=== PATIENT | male | born 1985 | race Caucasian/White ===

== ENCOUNTER 2019-06-14 02:57 | Inpatient (IN) ==
--- NOTE | 2019-06-14 03:11 | PROVIDER DOCUMENTATION ---
HPI-Abdominal Pain/GI Problem - General Chief Complaint: Abdominal Pain Stated Complaint: ABD PAIN Time Seen by Provider: 06/14/19 03:06 Source: patient Allergies/Adverse Reactions: Patient Allergies Allergy/AdvReac Type Severity Reaction Status Date / Time amoxicillin [Amoxicillin] Allergy Unknown Unknown Verified 06/14/19 03:07 Home Medications: Home Medication List Medication Instructions Recorded Confirmed Last Taken Type NK [No Home Medications] 06/14/19 06/14/19 Unknown History - History of Present Illness-ABD Nature of Presenting Problems: has been hurting for 3 days right upper quadrant mostly worsening this morning. Has had 4 of these over the last year.thinks food triggers . feels like he needs to havve a bm of urine but it doesnot come Abdominal Pain Onset Location: reports: RUQ Pain Radiation: reports: LUQ, back Quality of Pain: reports: aching, pressure Severity in ED: reports: moderate Onset/Duration: reports: 3 days ago Timing: reports: still present, getting worse Activities at Onset: reports: sleep Exposure to sick contacts?: No Modifying Factors: improves with: eating, movement, palpation Associated Symptoms: reports: loss of appetite, vomiting. denies: constipation, diaphoresis, diarrhea Last BM: 24 hours ago Dark Stools Present?: reports: none noticed Rectal Bleeding: reports: none # of Diarrhea Episodes: 0 Rectal Pain: reports: none # of Vomiting Episodes: 2 Bruising or Bleeding Gums?: No Similar Symptoms Previously?: Yes Recently seen or treated by another doctor?: No Review of Systems - Adult - REVIEW OF SYSTEMS - ADULT Constitutional: reports: no symptoms reported, chills, fever Eyes: reports: no symptoms reported Ears, Nose, Mouth & Throat: reports: no symptoms reported Cardiovascular: reports: no symptoms reported Respiratory: reports: no symptoms reported Gastrointestinal: reports: abdominal pain, nausea, vomiting. denies: hematem esis Genitourinary: reports: hesitency Past History - Adult - PAST MEDICAL HISTORY-ADULT Review of Records: reports: Nursing Assessment Review Major Childhood Illnesses: reports: denies history Cardiovascular: reports: denies history Respiratory: reports: denies history Gastrointestinal: reports: denies history Obstetrical/Gynecological: reports: denies history Genitourinary: reports: denies history Musculoskeletal: reports: denies history Neurological: reports: denies history Endocrine/Immune: reports: denies history Other Conditions: reports: denies history - PRIOR SURGERIES/PROCEDURES Surgical/Procedure History: reports: none - PRIOR HOSPITALIZATIONS Prior Hospitalizations: reports: none - IMMUNIZATION STATUS Childhood Immunizations: UTD Flu Vaccine: See Nurse Assessment - FAMILY HISTORY Family History: reviewed, not pertinent Physical Exam-General - PHYSICAL EXAM-ADULT Initial Vital Signs Reviewed: Yes - CONSTITUTIONAL General Appearance: alert - EYES Eyes: PERRL/EOMI, pink conjunctivae - HEAD, EARS, NOSE, MOUTH & THROAT HENMT: normocephalic/atraumatic - NECK Neck: non-tender, supple - RESPIRATORY Respiratory: chest non-tender, lungs clear, normal breath sounds - CARDIOVASCULAR Cardiovascular: regular rate, rhythm, no edema - GASTROINTESTINAL (ABDOMEN) Abdominal Exam: tenderness, other (RUQ pain) - LYMPHATIC Lymphatic: no adenopathy - MUSCULOSKELETAL Back Exam: no CVA tenderness, no vertebral tenderness Extremity: non-tender, normal gait - SKIN Integumentary: normal turgor, warm/dry - NEUROLOGIC Neurologic: grossly normal, no motor/sensory deficits - PSYCHIATRIC Psych/Mental Status: normal mood/affect Progress - PLAN OF CARE/RESULTS Progress/Plan/Lab Results: Vital Signs - 8 hr 06/14/19 03:02 Temperature 97.8 F Pulse Rate 94 H Respiratory Rate 20 Blood Pressure 138/86 O2 Sat by Pulse Oximetry 96 Orders Category Date Time Status NPO Diet 06/14/19 03:04 Active CBC WITH DIFF [HEME] Stat Lab 06/14/19 03:04 Uncollected COMPREHENSIVE METABOLIC PANEL [CHEM] Stat Lab 06/14/19 03:04 Uncollected LIPASE [CHEM] Stat Lab 06/14/19 03:04 Uncollected UA [URINALYSIS W/POSS RFLX CULT] [URINALYSIS] Stat Lab 06/14/19 03:04 Uncollected Abd Pain/OB <20 weeks Stat Oth 06/14/19 03:04 Ordered Result Diagrams: 06/15/19 06:20 06/15/19 06:20 - CT/MRI 1 CT Study: Abdomen, Pelvis Impression: Abnormal (large gb large fatty liver splenomgaly) - CONSULTS/PCP/HOSPITALIST Notification #1 *Consult/PCP/Hospitalist*: Dr Blue Time Discussed: 09:13 Consult Disposition: Admit (admit to hospitalist, put pt on zosyn) Departure - Departure Date of Disposition Decision: 06/14/19 Time of Disposition Decision: 13:50 DIAGNOSIS: Upper abdominal pain Gall stone Qualifiers: Cholecystitis presence: without cholecystitis Biliary obstruction: with biliary obstruction Qualified Code(s): K80.21 - Calculus of gallbladder without cholecystitis with obstruction Disposition: ADMITTED INPATIENT 09 Certified Medical Emergency: Emergent Condition: Stable - Critical Care Note This patient required my direct & personal management of CC.: No Attestation - Physician/ SONJA Attestation Patient care was provided by Advanced Practice Provider:: No The physician spent face to face time with patient:: Yes Advanced Practice Provider documentation review:: Supervising physician onsite and consulted in the evaluation and care of this patient. The physician did have a face to face encounter with the patient.
[2019-06-14 03:28] LABS: URINE SOURCE CLEAN CATCH
[2019-06-14 03:32] LABS: BASO# 0.02 X1000 (0.0-0.2); BASO% 0.2 % (0.0-0.8); EOS% 1.1 % (0.0-10.0); HEMATOCRIT 40.4 % (42.0-52.0); IMM GRAN# 0.03 X1000 (0.0-0.04); IMM GRAN% 0.3 % (0.0-0.5); LYMPH# 0.92 X1000 (1.2-3.4); LYMPH% 9.7 % (20.5-51.1); MCH 29.2 PG (27-31); MCHC 34.7 g/dL (33-37); MCV 84.3 FL (81-99); MONO% 8.5 % (1.7-9.3); NEUT# 7.59 X1000 (1.4-6.5); NEUT% 80.2 % (42.2-75.2); PLT 354 X1000 (130-400); RBC 4.79 XMIL (4.7-6.1); RDW 14.1 % (11.5-14.5); WBC 9.46 X1000 (4.8-10.8)
[2019-06-14 03:38] LABS: BILIRUBIN URINE SMALL (NEGATIVE); BLOOD URINE NEGATIVE (NEGATIVE); COLOR YELLOW; GLUCOSE URINE NEGATIVE (NEGATIVE); KETONE URINE NEGATIVE (NEGATIVE); LEUKOCYTES URINE NEGATIVE (NEGATIVE); NITRITE URINE NEGATIVE (NEGATIVE); PH URINE 6.5; PROTEIN URINE 30 mg/dL (NEGATIVE); SP GRAVITY URINE 1.034; TURBIDITY URINE CLEAR (CLEAR); UROBILINOGEN URINE 12 mg/dL (NORMAL)
[2019-06-14 03:44] LABS: UR EPITHELIAL CELLS <10 /HPF (<10); URINE RBC <10 /HPF (<10); URINE WBC <10 /HPF (<10)
[2019-06-14] MEDS ORDERED: TORADOL IV ONE (03:47)
[2019-06-14 03:49] LABS: AGAP 15; ALBUMIN 4.5 g/dL (3.5-5.0); ALKALINE PHOSPHATASE 126 U/L (32-122); BUN 13 mg/dL (8-22); CALCIUM 9.4 mg/dL (8.8-10.2); CHLORIDE 101 mmol/L (98-107); COSMO 276; CREATININE 0.8 mg/dL (0.7-1.2); ESTIMATED GFR > 60; GLUCOSE 133 mg/dL (70-104); GOT 613 U/L (10-34); GPT 652 U/L (10-44); LIPASE 19 U/L (13-60); POTASSIUM 4.4 mmol/L (3.5-5.1); SODIUM 137 mmol/L (136-145); TCO2 21 mmol/L (25-35)
[2019-06-14 03:57] LABS: URINE CASTS NONE SEEN; URINE YEAST NONE SEEN
[2019-06-14 03:58] LABS: URINE BACTERIA NEGATIVE /HPF; URINE CRYSTALS NONE SEEN; URINE SMALL ROUND CELLS NONE SEEN
--- NOTE | 2019-06-14 07:10 | Diag Imaging Result Doc PS360 ---
CT ABD/PELVIS W/IV CONT ONLY - 06/14/2019 INDICATION: abd pain COMPARISON: 01/03/2012 FINDINGS: The lung bases are clear and the heart size is normal. There is significant hepatic steatosis. There is mild splenomegaly. The spleen measures about 14 cm. There is some questionable wall thickening of the gallbladder. The pancreas, adrenals, and kidneys are normal. No bowel obstruction or inflammation. Normal appendix. No free air or free fluid. Urinary bladder, prostate, and rectum are normal. Bones are intact. IMPRESSION: 1. Questionable wall thickening of the gallbladder. Recommend a gallbladder ultrasound. 2. Fatty liver. Splenomegaly. This exam was performed using automated exposure control, adjustment of mA or kV according to patient size, and/or use of iterative reconstruction technique Electronically signed by Delmar Benitez 06/14/2019 7:08 AM
--- NOTE | 2019-06-14 08:11 | Diag Imaging Result Doc PS360 ---
EXAM: US GB < RUQ (LIMITED) - 06/14/2019 HISTORY: pain jaundice TECHNIQUE: Ultrasound gallbladder COMPARISON: 06/14/2019 CT abdomen/pelvis FINDINGS: There are multiple gallstones with shadowing and movement in the gallbladder. The gallbladder ashley appear thickened up to 9 mm. There is apparent gallbladder wall edema. The technologist reports positive sonographic Faust's sign. The common bile duct is normal caliber at 4 mm. The liver appears diffusely echodense suggesting fatty infiltration. There is no focal liver lesion identified. Doppler image shows hepatopedal flow in the portal vein. There are no abnormalities of the right kidney or visualized portions of the pancreas identified. IMPRESSION: Multiple gallstones in gallbladder. Thickened gallbladder ashley, which appear to be edematous. Cholecystitis cannot be excluded. The common bile duct is normal caliber at 4 mm. Fatty infiltration of liver. Electronically signed by Jorge L Camargo 06/14/2019 8:09 AM
[2019-06-14] MEDS ORDERED: ZOFRAN IV ONE (08:52)
[2019-06-14] MEDS ORDERED: MORPHINE IV ONE (08:52)
[2019-06-14] MEDS ORDERED: ZOSYN 4.5 GM in NS 100 ML IV ONE (09:12)
[2019-06-14] MEDS ORDERED: NS 1,000 ML IV ONE ×2 (11:10→15:21)
[2019-06-14] MEDS ORDERED: ZOFRAN IV PRN ×2 (11:57→15:14)
[2019-06-14] MEDS: LEVAQUIN 500 MG/D5W 500 MG/100 ML IVPB IV SCH (12:40)
[2019-06-14] MEDS ORDERED: DEMEROL IV PRN (15:13)
[2019-06-14 16:24] LABS: INR 1.14; PROTIME 14.7 Seconds (11.0-16.0)
--- NOTE | 2019-06-14 16:54 | PROGRESS NOTE ---
DATE: 06/14/2019 The patient had presented to [facility] and noted to have acute cholecystitis after CT of abdomen and pelvis. Then abdominal ultrasound showed cholelithiasis and gallbladder wall thickening. He has mild jaundice and his labs showed elevation of his LFTs, consistent with cholecystitis, despite normal white count. He has received IV boluses at the emergency room at [facility] and has been started on antibiotics, first in the form of Zosyn and now on Levaquin. He has been given pain medication, initially with morphine and now has Demerol ordered for that. Dr. Barry Blue has been consulted and is aware of his transfer to [facility]. I will be assuming his primary care here in the hospital at [facility] as I do not work at [facility] and he has been managed by the hospitalist to this point. Dr. Blue will be taking over from a surgical standpoint. I have examined the patient, reviewed the data, and discussed treatment with the patient in detail. cc: Marcus Cooper MD
[2019-06-14] MEDS: DILAUDID IV PRN ×2 (18:20→21:21)
--- NOTE | 2019-06-14 19:45 | GENERAL SURGERY CONSULTATION ---
DATE: 06/14/2019 REASON FOR CONSULTATION: Gallstones with possible biliary obstruction. CHIEF COMPLAINT: Abdominal pain. HISTORY OF PRESENT ILLNESS: This is a 33-year-old gentleman who has had intermittent abdominal pain over the last year. He says over the last 3 days and recently his symptoms have progressed becoming more constant over the last 3 days. He denies any jaundice, no fevers. He has had some associated nausea and vomiting. Bowel function has been otherwise normal. MEDICAL HISTORY: Negative. SURGICAL HISTORY: Negative. SOCIAL HISTORY: No tobacco, alcohol, or drugs. He is a intermodal truck driver. FAMILY HISTORY: Significant for esophageal cancer. REVIEW OF SYSTEMS: Ten-point review was performed and negative other than what is mentioned in HPI. PHYSICAL EXAMINATION: General: He is walking around the room, appears uncomfortable. He is tearful. He is alert, in mild distress. He is having pain. Vital signs: No fevers. Pulse 92, blood pressure 124/68, oxygen saturation 95%. He is 230 pounds, 5 foot 9 inches. HEENT: No scleral icterus. No cervical mass. Cardiovascular: Normal rate. Pulmonary: No increased work of breathing. Abdomen: Soft. He is tender subjectively in the upper quadrant. There has been no rebound or guarding. Integument: Warm and dry. Psychiatric: Appropriate affect. Neurologic: No gross deficits. Lymphatic: No cervical adenopathy. LABORATORY DATA: White count 9, hematocrit 40, platelets 354,000. Creatinine 0.8. Bilirubin is 4. AST 613, ALT 652, alkaline phosphatase 126, lipase 19. Urinalysis negative for nitrites and leukocytes. IMAGING: I reviewed his CT scan. His abdominal ultrasound shows gallstones but a normal caliber bile duct. There is some thickening of the gallbladder wall. ASSESSMENT AND PLAN: This is a 33-year-old gentleman admitted with gallstones and elevated liver function tests, possible early cholecystitis. Given this, I have recommended cholecystectomy with cholangiogram tomorrow. He is on antibiotics currently, and we will continue bowel rest, IV hydration and IV pain medicine. We discussed risks of bleeding, infection, damage to surrounding structures, bile leak, conversion to open, possibility of an ERCP. He understands all this and consents. We will go to the operating room tomorrow for cholecystectomy with cholangiogram. cc: Laura Blue MD
[2019-06-14] MEDS: TYLENOL PO PRN (21:18)
[2019-06-15] MEDS: DILAUDID IV PRN ×6 (00:22→20:43)
--- NOTE | 2019-06-15 01:41 | HISTORY AND PHYSICAL ---
CHIEF COMPLAINT: Abdominal pain. HISTORY OF PRESENT ILLNESS: The patient is very pleasant male who presented to the hospital noting that he has been having abdominal pain off and on for approximately a year. States that sometimes food makes it worse. However, over the past 3 days he has had increasing right upper quadrant/epigastric pain, increasing nausea. He has had decreased oral intake. Finally, symptoms became severe enough that he came to the hospital. ALLERGIES: Amoxicillin. MEDICATIONS: He is on no current prescription medications. PAST MEDICAL HISTORY: No chronic active medical problems. REVIEW OF SYSTEMS: Denies fevers, chills, cough, congestion. Denies dysuria, urinary frequency, urgency, hesitancy, polyuria or polydipsia. Denies skin rashes, weight loss, weight gain. Denies constipation, melena, hematochezia. Does have pain right upper quadrant/epigastric area with vomiting off and on for the past 3 days. Decreased appetite. Denies headaches or blurred vision. Denies focalized weakness. Notes that his symptoms continue to worsen. FAMILY HISTORY: Noncontributory. SOCIAL HISTORY: Does not smoke, drink, use illicit substances. PHYSICAL EXAMINATION: VITAL SIGNS: Reviewed. Temperature 97.8 degrees, pulse 94, respiratory 20, BP 138/86, saturating 96% on room air. GENERAL: Patient is awake, pleasant, in no distress. HEENT: Normocephalic. NECK: Supple. CARDIOVASCULAR: Regular rate. CHEST: Clear and nonlabored. ABDOMEN: Soft, tender in the right upper quadrant and epigastric region. Positive bowel sounds. EXTREMITIES: Moves all extremities. NEUROLOGIC: No focal changes. SKIN: Warm, dry. No rashes. ASSESSMENT: 1. Gallstones. 2. Probable cholecystitis. 3. Right upper quadrant pain. 4. Mild hyperglycemia. 5. Fatty liver. 6. Mild splenomegaly. PLAN: We are going to admit patient to the hospital, place on antibiotics, IV fluids. We will consult Surgery. Transfer to [facility] and we will treat symptomatically. cc: Arash Charles MD
[2019-06-15] MEDS: TYLENOL PO PRN ×2 (03:27→22:16)
[2019-06-15 06:52] LABS: HEMATOCRIT 40.6 % (42.0-52.0); MCH 29.5 PG (27-31); MCHC 34.5 g/dL (33-37); MCV 85.7 FL (81-99); MPV 9.2 FL (7.4-10.4); RBC 4.74 XMIL (4.7-6.1); RDW 14.4 % (11.5-14.5); WBC 8.46 X1000 (4.8-10.8)
[2019-06-15 07:16] LABS: AGAP 11; ALB/GLOB RATIO 1.1; ALKALINE PHOSPHATASE 201 U/L (32-122); BUN 9 mg/dL (8-22); CALCIUM 9.5 mg/dL (8.8-10.2); CHLORIDE 99 mmol/L (98-107); COSMO 268; CREATININE 0.9 mg/dL (0.7-1.2); ESTIMATED GFR > 60; GLUCOSE 93 mg/dL (70-104); GOT 474 U/L (10-34); MAGNESIUM 2.1 mg/dL (1.5-2.7); POTASSIUM 4.1 mmol/L (3.5-5.1); SODIUM 135 mmol/L (136-145); TCO2 25 mmol/L (25-35); TOTAL PROTEIN 7.6 g/dL (6.3-8.3)
[2019-06-15 07:32] LABS: GPT 1032 U/L (10-44)
[2019-06-15] MEDS ORDERED: VERSED ONE ×2 (09:45→10:25)
[2019-06-15] MEDS ORDERED: FENTANYL ONE ×2 (09:45→11:23)
[2019-06-15] MEDS ORDERED: DIPRIVAN 1% ONE (09:46)
[2019-06-15] MEDS ORDERED: MARCAINE 0.25% PF/EPI 1:200,000 ONE (10:15)
[2019-06-15] MEDS ORDERED: LR 1,000 ML ONE (10:15)
[2019-06-15] MEDS ORDERED: SODIUM CHLORIDE 0.9% ONE (10:15)
[2019-06-15] MEDS ORDERED: NEOSTIGMINE ONE (11:00)
[2019-06-15] MEDS ORDERED: ROBINUL ONE (11:00)
[2019-06-15] MEDS ORDERED: XYLOCAINE-MPF 2% ONE (11:01)
[2019-06-15] MEDS ORDERED: QUELICIN (DOSE) ONE (11:01)
[2019-06-15] MEDS ORDERED: DECADRON ONE (11:01)
[2019-06-15] MEDS ORDERED: ZEMURON ONE ×3 (11:01→12:17)
[2019-06-15] MEDS ORDERED: ZOFRAN ONE (11:01)
[2019-06-15] MEDS ORDERED: OFIRMEV 1000 MG/ISOTONIC SOLN 1,000 MG/100 ML BOTTLE ONE (11:01)
[2019-06-15] MEDS: LEVAQUIN 500 MG/D5W 500 MG/100 ML IVPB IV SCH (11:40)
--- NOTE | 2019-06-15 12:16 | Diag Imaging Result Doc PS360 ---
EXAM: OPERATIVE CHOLANGIOGRAM HISTORY: GALLBLADDER DX TECHNIQUE: Seven views COMPARISON: None. FINDINGS: Contrast fills the common bile duct. Jolon-shaped filling defect in the distal common bile duct. IMPRESSION: Distal common bile duct stone. Electronically signed by Don Diggs 06/15/2019 12:14 PM
[2019-06-15] MEDS: DILAUDID ONE (13:34)
--- NOTE | 2019-06-15 14:32 | OPERATIVE NOTE ---
PROCEDURE DATE: 06/15/2019 PREOPERATIVE DIAGNOSIS: Choledocholithiasis. POSTOPERATIVE DIAGNOSES: 1. Choledocholithiasis. 1. Acute on chronic cholecystitis. PROCEDURE PERFORMED: Laparoscopic cholecystectomy with cholangiogram. ESTIMATED BLOOD LOSS: 50 mL. SPECIMENS: Gallbladder. ANESTHESIA: General. OPERATIVE FINDINGS: 1. There was a densely inflamed thickened wall gallbladder with a significant Calot node. There were numerous stones impacted within the cystic duct with a significantly dilated gallbladder infundibulum cystic duct. 2. Interpretation of cholangiogram showed rapid flow of contrast through a moderate length cystic duct into a dilated common bile duct with distal filling defect. Intrahepatic radicals bilaterally were normal other than with dilation consistent with retained distal common bile duct operative stone. OPERATIVE NOTE: Risks, benefits, and alternatives were discussed with the patient and he consented to the procedure. He was seen preoperatively. Surgical site was confirmed. He was taken to the operating room and placed in the supine position. General anesthesia induced without complication. All bony prominences were padded. His abdomen was prepped with chlorhexidine solution after hair was removed with clippers and draped in usual fashion. An orogastric tube was placed. He was on scheduled antibiotics and these were confirmed. After a time-out a supraumbilical midline incision was made and carried down along the fascia. The fascia was incised and the abdomen was entered in an open controlled fashion and a 12 mm Dong trocar was placed. We then placed 3 additional trocars along the costal margin after insufflating the abdomen and decompressed the gallbladder with the suction decompression catheter retracted cephalad. We then had to place a right lower quadrant 10 mm trocar for a fan retractor. We did this under direct observation. Starting laterally and progressing medially, we stripped down the thickened peritoneum and inflamed node over the infundibulocystic junction. We did this meticulously, it was very densely inflamed. There were impacted stones within the cystic duct that we made a ductotomy, and milked back. We were able to safely establish a critical view, encircling the cystic duct, including the lower third of the gallbladder, made a ductotomy. We were able to cannulate the cystic duct and confirm our anatomy with the cholangiogram. The findings were consistent with a choledocholithiasis. At this point, we re-established our exposure. We had plenty of length on the cystic duct. Given the dilated nature our clips would not fit, as such a 30 mm endo-JAIME gold load stapler was used to staple across the duct. The gallbladder was removed and there was spillage of a couple stones but we were able to collect these and keep the majority of the stones within the gallbladder. There were innumerable stones in the gallbladder. The bile was white, consistent with gallbladder hydrops. It was placed in an EndoCatch bag, copiously irrigated. There was no bile leakage. There was no bleeding. There was a posterior cystic artery that we coursed directly in the gallbladder that was clipped during removal of the gallbladder. It was placed in an EndoCatch bag. A Alexandru drain was placed. We had to up size our epigastric trocar to admit the stapler. We closed both the right lower quadrant and the epigastric with a Refugio Christiano 0 Vicryl. The midline fascia was closed with interrupted 0 Vicryl and skin was closed with surgical clips. He was awoken and transferred to recovery. I attempted to reach the family. Counts were correct. I have also consulted Gastroenterology for ERCP. cc: MD Marcus Godwin MD
--- NOTE | 2019-06-15 16:04 | PROGRESS NOTE ---
DATE: 06/15/2019 SUBJECTIVE: The patient just back from surgery and the recovery room. He has undergone laparoscopic cholecystectomy with drain left in place. Unfortunately, he does have a common bile duct stone and Dr. Lilly has been consulted per Dr. Blue. He is currently comfortable. OBJECTIVE: Afebrile, pulse 81, respirations 16, blood pressure 134/79, O2 saturation on oxygen 91%, having run 99 to 96% throughout the afternoon.CV: Regular rate and rhythm without murmur. Lungs: Clear. Abdomen: Drain in place. Active bowel sounds. Extremities: No calf tenderness, cords or edema. Skin is sweaty. Neuro: He follows all commands. He is somewhat sedated currently. He has moderate jaundice. LAB DATA: Today shows a BUN of 9, creatinine 0.9, potassium 4.1, calcium 9.5, magnesium 2.1. Bilirubin cody from 4 to 10, AST 474, ALT 1032, alkaline phosphatase 201, total protein 7.6, albumin 4.0, lipase yesterday 19. TSH 1.57. White count 8.4, hemoglobin 14, platelets 357,000. INR 1.14. ASSESSMENT: Acute cholecystitis with choledocholithiasis, now status post laparoscopic cholecystectomy with need for endoscopic retrograde cholangiopancreatography to be done by Dr. Lilly. PLAN: Continue IV Levaquin as he is allergic to penicillin. We will add Flagyl, and Dr. Lilly is going to see the patient regarding ERCP. We will give him some low-grade IV fluids in light of his jaundice. Repeat labs in the morning. Dr. Sumner will be seeing him in my absence tomorrow. cc: Marcus Cooper MD
[2019-06-15] MEDS ORDERED: NS + KCL 20 MEQ 1,000 ML IV SCH (16:38)
[2019-06-15] MEDS: D5 1/2 NS 1,000 ML IV SCH (16:40)
[2019-06-15] MEDS: FLAGYL 500 MG/NS 500 MG/100 ML IVPB IV SCH (20:44)
[2019-06-15] MEDS ORDERED: PERIDEX MT SCH (21:00)
[2019-06-16] MEDS: DILAUDID ONE (00:29)
[2019-06-16] MEDS: D5 1/2 NS 1,000 ML IV SCH (00:30)
--- NOTE | 2019-06-16 00:35 | GASTROENTEROLOGY CONSULTATION ---
DATE: 06/15/2019 REASON FOR CONSULTATION: Choledocholithiasis, abnormal LFTs. HISTORY OF PRESENT ILLNESS: Mr. Idris Sims is a 33-year-old gentleman with obesity who presented with 2 days of severe epigastric abdominal pain. The patient says that he developed pain suddenly while at work at around 8 p.m. His pain became progressively worse, prompting him to come to the emergency room at about 2 a.m. in the morning. He reports some nausea, decreased p.o. intake, dark urine and jaundice. No fevers, vomiting, change in bowel habits, abnormal weight loss, rectal bleeding, melena or new medication. Denies any family or personal history of liver disease. He does not drink alcohol regularly. No drug use or Tylenol use. He had a CT on admission that showed some fatty liver and questionable wall thickening of the gallbladder as well as some mild splenomegaly. Subsequent abdominal ultrasound showed multiple gallstones in the gallbladder, thickened gallbladder ashley that were edematous, concerning for acute cholecystitis. The common bile duct was measuring 4 mm at the time. He underwent laparoscopic cholecystectomy today with intraoperative cholangiogram showing distal common bile duct stones. He currently denies any pain or any other symptoms. He is hemodynamically stable. REVIEW OF SYSTEMS: As per HPI, otherwise 12-point review of systems is negative. PAST MEDICAL HISTORY: None. PAST SURGICAL HISTORY: None. MEDICATIONS: None. ALLERGIES: Amoxicillin FAMILY HISTORY: No family history of liver disease or GI malignancy. SOCIAL HISTORY: Nonsmoker. He drinks alcohol rarely. No drug use. PHYSICAL EXAMINATION: Vital signs: Temperature is 99.1 degrees, heart rate 80, respiratory rate 16, blood pressure 123/72, O2 saturation 95% on room air. Generally the patient is awake, alert, oriented, in no acute distress. HEENT: Some scleral icterus is present. Moist mucous membranes. Extraocular motor intact. No JVD or lymphadenopathy. Cardiac: Regular rate and rhythm. No murmurs, rubs or gallops. Lungs are clear to auscultation bilaterally. Abdomen is obese, soft. Trocar incisions are dressed, with dressing clean, dry and intact. Bowel sounds are hypoactive. No rebound or guarding. Extremities: No clubbing, cyanosis or edema. Neurologic: Nonfocal. LABORATORY DATA: White count is 8.46, hemoglobin of 14.0, platelets are 367,000. Sodium 135, potassium 4.1, chloride 99, bicarbonate 35, BUN of 9, creatinine 0.9, glucose of 93, total bilirubin of 10 from 4 yesterday, AST of 474 from 613, ALT of 1032 from 652, alkaline phosphatase of 201 from 126, total protein 4.6. Lipase is 19. TSH of 1.57. UA shows urobilinogen and bilirubin. Imaging as mentioned in the HPI. Blood cultures x2 pending. ASSESSMENT AND PLAN: Mr. Idris Sims is a 33-year-old gentleman with obesity, who presents with obstructive jaundice and abdominal pain in the setting of acute cholecystitis with choledocholithiasis. He is postoperative day zero from laparoscopic cholecystectomy. He has grossly cholestatic liver function tests. He is hemodynamically stable. He is on Levaquin, and is being started on Flagyl as per primary team. I have spoken with Dr. Weldon. The plan for him will be to have endoscopic retrograde cholangiopancreatography tomorrow. We will keep him NPO after midnight. Continue to trend his liver function tests daily. Intravenous fluids, antibiotics, pain control. Further recommendations post ERCP tomorrow. # Acute cholecystitis # Choledocholithiasis # Abnormal LFTs # Nausea Thank you for this consult. We will follow with you. Please call with any questions or concerns. cc: Marcus Cooper MD MTDD
[2019-06-16] MEDS: DILAUDID IV PRN ×6 (03:09→21:37)
[2019-06-16] MEDS: FLAGYL 500 MG/NS 500 MG/100 ML IVPB IV SCH ×3 (04:51→20:12)
[2019-06-16 06:48] LABS: BASO# 0.02 X1000 (0.0-0.2); BASO% 0.2 % (0.0-0.8); EOS# 0.08 X1000 (0.0-0.7); EOS% 0.9 % (0.0-10.0); HEMATOCRIT 36.7 % (42.0-52.0); HEMOGLOBIN 12.4 g/dL (14.0-18.0); IMM GRAN# 0.03 X1000 (0.0-0.04); IMM GRAN% 0.3 % (0.0-0.5); LYMPH% 13.2 % (20.5-51.1); MCHC 33.8 g/dL (33-37); MCV 85.7 FL (81-99); MONO# 0.67 X1000 (0.11-0.59); MONO% 7.3 % (1.7-9.3); MPV 9.2 FL (7.4-10.4); NEUT# 7.12 X1000 (1.4-6.5); NEUT% 78.1 % (42.2-75.2); PLT 355 X1000 (130-400); RBC 4.28 XMIL (4.7-6.1); RDW 14.1 % (11.5-14.5); WBC 9.12 X1000 (4.8-10.8)
[2019-06-16 07:30] LABS: POTASSIUM 3.9 mmol/L (3.5-5.1); SODIUM 136 mmol/L (136-145)
[2019-06-16 07:31] LABS: AGAP 13; ALBUMIN 3.5 g/dL (3.5-5.0); ALKALINE PHOSPHATASE 210 U/L (32-122); AMYLASE 47 U/L (20-200); BUN 10 mg/dL (8-22); CALCIUM 8.7 mg/dL (8.8-10.2); CHLORIDE 99 mmol/L (98-107); COSMO 271; CREATININE 0.8 mg/dL (0.7-1.2); ESTIMATED GFR > 60; GLUCOSE 99 mg/dL (70-104); GOT 338 U/L (10-34); GPT 815 U/L (10-44); LIPASE 23 U/L (13-60); TCO2 24 mmol/L (25-35); TOTAL BILIRUBIN 7.91 mg/dL (0.20-1.00)
[2019-06-16] MEDS ORDERED: QUELICIN (DOSE) ONE (07:59)
[2019-06-16] MEDS ORDERED: DIPRIVAN 1% ONE (07:59)
[2019-06-16] MEDS ORDERED: VERSED ONE (07:59)
[2019-06-16] MEDS ORDERED: XYLOCAINE-MPF 2% ONE (07:59)
[2019-06-16] MEDS ORDERED: PERIDEX MT SCH (09:00)
[2019-06-16] MEDS: TYLENOL PO PRN (09:05)
[2019-06-16] MEDS ORDERED: DILAUDID ONE (10:47)
[2019-06-16] MEDS ORDERED: ZOFRAN ONE (11:28)
[2019-06-16] MEDS ORDERED: DECADRON ONE (11:28)
--- NOTE | 2019-06-16 11:38 | GENERAL SURGERY PROGRESS NOTE ---
DATE: 06/16/2019 SUBJECTIVE: The patient complains of abdominal pain, partially relieved with the 0.5 mg of Dilaudid. Overall though his pain is improved compared to preop. No nausea or vomiting. He is awaiting ERCP. OBJECTIVE: Vital Signs: He is afebrile. Vital signs are stable. General: He is awake, alert, oriented x3, in no acute distress. Gastrointestinal: Soft, minimally tender. Incision is clean, dry, and intact. LABORATORY: Total bilirubin 7.9, AST 338, ALT 815, alkaline phosphatase 210. ASSESSMENT AND PLAN: 33-year-old male status post laparoscopic cholecystectomy with residual choledocholithiasis. He is getting endoscopic retrograde cholangiopancreatography today. We will advance his diet afterwards. I will increase his Dilaudid to 1 mg and we are planning [place] for pain as well. He can advance his diet if the endoscopic retrograde cholangiopancreatography goes well. cc: MD Marcus Joy MD
[2019-06-16] MEDS ORDERED: LR 500 ML ONE (11:55)
--- NOTE | 2019-06-16 12:09 | OPERATIVE NOTE ---
PROCEDURE DATE: 06/16/2019 PROCEDURES: 1. Endoscopic retrograde cholangiography. 2. Sphincterotomy. 3. Stone removal. 4. Stent placement. PREOPERATIVE DIAGNOSIS: Choledocholithiasis. POSTOPERATIVE DIAGNOSIS: Debris plus small blood clot in the common bile duct, removed and stented. PROCEDURE: After informed consent and adequate intravenous sedation, the scope introduced in the esophagus, stomach and duodenum. Ampulla appears normal. Cholangiogram did not reveal any large filling defects. A standard sphincterotomy was done. Basket sweep did reveal debris and a small blood clot. This was lavaged. At this point, a short 5 cm, 10-Frisian stent was deployed after standard sphincterotomy. The patient tolerated the procedure well without any immediate complications. Advance the diet. I will see him in follow up in 2 to 3 weeks, and remove the stent. cc: MD Marcus Bazzi MD R. Tyler Harney, MD
--- NOTE | 2019-06-16 13:18 | PROGRESS NOTE ---
DATE: 06/16/2019 SUBJECTIVE: A 33-year-old white male admitted to the hospital with cholecystitis with choledocholithiasis. The patient had a laparoscopic cholecystectomy done 06/15/2019. Dr. Blue and Dr. Weldon did a stent this afternoon. The patient is eating a liquid diet. He is feeling better. PHYSICAL EXAMINATION: Vital signs: Temperature is 97 degrees, pulse is 86, blood pressure is stable. HEENT: He is still icteric. Chest: Clear. Heart: Sounds are regular. Abdomen: Belly is soft, nontender. Neurologic: No neurological deficits. INVESTIGATIONS: CBC: White cell count 9.1, hematocrit 36, platelets 355,000. Sodium 136, potassium 3.9, BUN 10, creatinine 0.8. Bilirubin is coming down to 7.9. LFTs were coming down. ASSESSMENT AND PLAN: Status post cholecystectomy. A small blood clot was removed, stented. He is on clear liquid diet. Currently he is on IV Levaquin, IV Flagyl and nausea medicine, and we will follow up on the labs in the morning. Continue present treatment. We will follow up. cc: MD Marcus Ferreira MD
[2019-06-16] MEDS: LEVAQUIN 500 MG/D5W 500 MG/100 ML IVPB IV SCH (13:28)
[2019-06-16] MEDS: NORCO-10 PO PRN ×2 (13:32→20:11)
[2019-06-16] MEDS: NS 1,000 ML IV SCH ×2 (13:32→20:12)
[2019-06-17] MEDS: NS 1,000 ML IV SCH ×4 (00:29→14:06)
[2019-06-17] MEDS: DILAUDID IV PRN ×7 (00:47→23:56)
[2019-06-17] MEDS: NORCO-10 PO PRN ×3 (02:28→18:51)
[2019-06-17] MEDS: FLAGYL 500 MG/NS 500 MG/100 ML IVPB IV SCH ×3 (04:04→20:36)
[2019-06-17 07:00] LABS: BASO# 0.02 X1000 (0.0-0.2); BASO% 0.2 % (0.0-0.8); EOS# 0.14 X1000 (0.0-0.7); EOS% 1.7 % (0.0-10.0); HEMATOCRIT 36.1 % (42.0-52.0); IMM GRAN# 0.04 X1000 (0.0-0.04); IMM GRAN% 0.5 % (0.0-0.5); LYMPH% 18.7 % (20.5-51.1); MCH 29.1 PG (27-31); MCHC 33.2 g/dL (33-37); MCV 87.6 FL (81-99); MONO# 0.66 X1000 (0.11-0.59); MONO% 8.2 % (1.7-9.3); MPV 9.5 FL (7.4-10.4); NEUT# 5.66 X1000 (1.4-6.5); NEUT% 70.7 % (42.2-75.2); PLT 358 X1000 (130-400); RBC 4.12 XMIL (4.7-6.1); RDW 14.4 % (11.5-14.5); WBC 8.02 X1000 (4.8-10.8)
[2019-06-17 07:22] LABS: AGAP 11; ALB/GLOB RATIO 1.2; ALBUMIN 3.4 g/dL (3.5-5.0); ALKALINE PHOSPHATASE 220 U/L (32-122); BUN 9 mg/dL (8-22); CALCIUM 8.6 mg/dL (8.8-10.2); CHLORIDE 99 mmol/L (98-107); COSMO 267; CREATININE 0.8 mg/dL (0.7-1.2); ESTIMATED GFR > 60; GLUCOSE 94 mg/dL (70-104); GOT 266 U/L (10-34); GPT 677 U/L (10-44); POTASSIUM 3.4 mmol/L (3.5-5.1); SODIUM 134 mmol/L (136-145); TCO2 24 mmol/L (25-35); TOTAL BILIRUBIN 4.79 mg/dL (0.20-1.00); TOTAL PROTEIN 6.3 g/dL (6.3-8.3)
--- NOTE | 2019-06-17 08:48 | GENERAL SURGERY PROGRESS NOTE ---
DATE: 06/17/2019 SUBJECTIVE: The patient feels much better. He has mild soreness in the right upper quadrant. No nausea or vomiting. No severe abdominal pain. He is tolerating his liquid diet and he is hungry. The notes of the ERCP were reviewed. The findings were significant for debris and blood clot in the bile duct, which was cleared out. OBJECTIVE: He is afebrile. Vital signs are stable. General: He is awake, alert, and oriented x3. No acute distress. GI: Soft. Mild tenderness in the right upper quadrant. No rebound or guarding. KARLA drain serosanguineous. Laboratory: AST 266, ALT 677, alkaline phosphatase 220, total bilirubin 4.8, amylase 275. ASSESSMENT/PLAN: A 33-year-old male status post laparoscopic cholecystectomy and endoscopic retrograde cholangiopancreatography. He is much improved. We will advance his diet today and he is safe for discharge from my standpoint. The amylase level is likely normal considering recent endoscopic intervention and cholecystitis. He should follow up with Dr. Blue this week. cc: MD Marcus Joy MD
[2019-06-17] MEDS: LEVAQUIN 500 MG/D5W 500 MG/100 ML IVPB IV SCH (12:10)
[2019-06-17] MEDS ORDERED: KLOR-CON PO ONE (12:47)
--- NOTE | 2019-06-17 13:15 | PROGRESS NOTE ---
DATE: 06/17/2019 SUBJECTIVE: The patient is doing much better after ERCP. Anxious to go home. He is on clear liquid diet. REVIEW OF SYSTEMS: Otherwise none reported. OBJECTIVE: Vital Signs: Temperature 98 degrees, pulse 82. Vitals are stable. HEENT: Mild jaundice noted. Neck: Supple. Chest: Clear to auscultation. Heart: Sounds are regular. Abdomen: Belly is soft, nontender. INVESTIGATIONS: White cell count 8, hematocrit 36, platelets 358,000. Sodium 134, potassium 3.4. LFTs were coming down. Lipase 258. ASSESSMENT AND PLAN: 1. Status post laparoscopic cholecystectomy followed by stent. No definitive stones noted. Amylase is slightly high. We will continue to monitor the trend. 2. Hypokalemia. Replace the potassium. 3. Currently patient is on IV Levaquin, IV Flagyl, and if he continues to get better tomorrow, will discharge. Antithrombotic stockings for deep venous thrombosis prophylaxis. 4. Also check the hepatitis profile. LEVEL OF DOCUMENTATION: 25 minutes. cc: MD Marcus Ferreira MD
--- NOTE | 2019-06-17 23:07 | PROVIDER PROGRESS NOTE ---
Progress Note S: No acute overnight events. Afebrile. No N/V, CP, SOB. Patient reports some mild pain at his incisions. Tolerating regular diet this AM. O: Last Vital Signs Temp 98.1 F 06/17/19 20:00 Pulse 77 06/17/19 20:56 Resp 17 06/17/19 20:56 BP 129/55 06/17/19 20:00 Pulse Ox 98 06/17/19 20:56 Height 5 ft 9 in Weight 230 lb GEN: awake, alert, NAD HEENT: anicteric, MMM NECK: supple, no JVD PULM: CTAB, no wheezing CV: RRR, no murmurs ABD: trocar incisions dressing c/d/i, RUQ KARLA drain with minimal serosang fluid, BS+ EXT: no cce NEURO: nonfocal LABS: 06/17/19 06/17/19 06/17/19 06:22 06:22 06:29 WBC 8.02 Hgb 12.0 L Plt Count 358 Sodium 134 L Potassium 3.4 L Chloride 99 Carbon Dioxide 24 L BUN 9 Creatinine 0.8 Total Bilirubin 4.79 H AST 266 H ALT 677 H Alkaline Phosphatase 220 H Total Protein 6.3 Albumin 3.4 L Amylase 275 H ERCP 06/15 PROCEDURE: After informed consent and adequate intravenous sedation, the scope introduced in the esophagus, stomach and duodenum. Ampulla appears normal. Cholangiogram did not reveal any large filling defects. A standard sphincterotomy was done. Basket sweep did reveal debris and a small blood clot. This was lavaged. At this point, a short 5 cm, 10-Indonesian stent was deployed after standard sphincterotomy. The patient tolerated the procedure well without any immediate complications. ASSESSMENT AND PLAN: # Acute cholecystitis s/p CCY # Choledocholithiasis # Abnormal LFTs # Anemia # Hyponatremia # Hypokalemia Mr. Idris Sims is a 33-year-old gentleman with obesity, who presents with obstructive jaundice and abdominal pain in the setting of acute cholecystitis w ith choledocholithiasis. He is postoperative POD#2 from laparoscopic cholecystectomy and s/p ERCP with sphincterotomy and stent placement on 06/15. His LFTs are improving. Afebrile. Tolerating diet. Anemia is post-operative. No signs of intraabdominal bleeding. No need for trending lipase/amylase or checking HCV fibrosure (discontinued, no history of hepatitis C). Trending LFTs daily. On flagyl and levaquin. Replete lytes prn. Will need repeat ERCP in 6 weeks for stent removal. Will follow with you. Please call with questions.
[2019-06-18] MEDS: NORCO-10 PO PRN ×2 (01:26→08:03)
[2019-06-18] MEDS: NS 1,000 ML IV SCH ×2 (01:31→07:30)
[2019-06-18] MEDS: FLAGYL 500 MG/NS 500 MG/100 ML IVPB IV SCH (04:59)
[2019-06-18] MEDS: DILAUDID IV PRN (05:00)
[2019-06-18 07:20] LABS: AGAP 11; ALB/GLOB RATIO 0.9; ALBUMIN 3.4 g/dL (3.5-5.0); ALKALINE PHOSPHATASE 248 U/L (32-122); BUN 8 mg/dL (8-22); CHLORIDE 98 mmol/L (98-107); COSMO 264; CREATININE 0.7 mg/dL (0.7-1.2); ESTIMATED GFR > 60; GLUCOSE 91 mg/dL (70-104); GOT 144 U/L (10-34); GPT 529 U/L (10-44); POTASSIUM 3.7 mmol/L (3.5-5.1); SODIUM 133 mmol/L (136-145); TCO2 24 mmol/L (25-35); TOTAL BILIRUBIN 3.06 mg/dL (0.20-1.00); TOTAL PROTEIN 7.2 g/dL (6.3-8.3)
[2019-06-18 08:35] VITALS: BP 122/75
--- NOTE | 2019-06-18 10:38 | DISCHARGE SUMMARY ---
ADMISSION DATE: 06/14/2019 DISCHARGE DATE: 06/18/2019 DIAGNOSIS: Acute cholecystitis with choledocholithiasis, now status post laparoscopic cholecystectomy with drain placement and also ERCP with sphincterotomy and stent placement, the common bile duct. CONSULTANTS: 1. Laura Blue MD, General Surgery. 2. Efrem Lilly MD, Gastroenterology. PROCEDURES: 1. CT abdomen and pelvis with IV contrast only, done 06/14/2019, revealing wall thickening of the gallbladder, fatty liver, splenomegaly. 2. Right upper quadrant abdominal ultrasound, done 06/14/2019, revealing multiple gallstones in the gallbladder with thickened gallbladder ashley, which appear to be edematous. Cholecystitis cannot be excluded. Common bile duct is normal caliber at 4 mm. 3. On 06/15/2019, laparoscopic cholecystectomy with intraoperative cholangiogram, the latter being abnormal, drain placement noted. 4. ERCP with sphincterotomy and stone removal and stent placement, done 06/16/2019, per Dr. Weldon. REASON FOR ADMISSION AND HOSPITAL COURSE: The patient is a 33-year-old white male, followed in my medical practice, who had had some off and on abdominal pain for about 1 year that he contributed to reflux. He had taken over the counter medications and failed to seek evaluation in my office or with the physicians. He had decreased oral intake for 3 days prior to this admission and prominent right upper quadrant epigastric pain. He was noted to have abnormal lab function tests in the form of elevated LFTs with total bilirubin 4, AST 613, ALT 652, alkaline phosphatase 126. Initial amylase was normal at 47, lipase 19. TSH 1.57. CBC normal. INR 1.14. CT abdomen and pelvis revealed possible gallstones and thickening of the gallbladder, and right upper quadrant abdominal ultrasound confirmed those findings, also some splenomegaly and fatty liver. The patient was placed on IV antibiotics. As he presented to [place], he was admitted and given a dose of antibiotics and was transferred over to [facility] where Dr. Blue saw the patient. He received IV fluids, was kept on IV antibiotics in the form of Levaquin and Flagyl. Blood cultures were negative. The patient then underwent laparoscopic cholecystectomy and a drain was placed, and the intraoperative cholangiogram showed possible common bile duct stone. Dr. Lilly was consulted and saw the patient in that regard and agreed with treatment. Dr. Weldon saw the patient and performed ERCP with sphincterotomy, and some debris and possible stone and blood clot was removed. The patient remained on antibiotics. He seemed to improve gradually, and his liver function tests were improving daily, and it was felt he could be discharged home to follow up with Dr. Blue within 1 week. DISCHARGE MEDICATIONS: His discharge medications will be Levaquin 750 mg p.o. daily for 5 days, Linwood 10 one p.o. every 4 to 6 hours p.r.n. pain. FOLLOWUP: He will follow up with me as needed. cc: MD Laura Batista MD
--- NOTE | 2019-06-18 12:12 | GENERAL SURGERY PROGRESS NOTE ---
DATE: 06/18/2019 SUBJECTIVE: Tolerating diet. Feels much better. Incisions are intact. KARLA drain serosanguineous. No fevers. No tachycardia. LFTs continue to downtrend. Bilirubin is down to 3. Transaminases are normalizing. ASSESSMENT AND PLAN: This is a 33-year-old gentleman with choledocholithiasis, status post cholecystectomy and endoscopic retrograde cholangiopancreatography. I removed his drain. His incisions are intact; I will remove his héctor early next week. I have given him postoperative instructions, and Dr. Cooper plans to let him go home today. cc: MD Marcus Godwin MD
--- NOTE | 2019-06-18 14:12 | GASTROENTEROLOGY PROGRESS NOTE ---
DATE: 06/18/2019 SUBJECTIVE: Mr. Sims is a 33-year-old male resting in bed. The patient mentioned feeling better and had some mild abdominal pain in the incision area. The patient has discharge orders to go home today. OBJECTIVE: Vital Signs: Temperature 98.2 degrees, pulse 91, respirations 18, blood pressure 122/75, and oxygen saturation is 93% on room air. The patient's weight is 230 pounds. BMI is 34.0 kg per meter sq. General: He is alert and oriented x3, and in no acute distress. HEENT: Pale conjunctivae. No icterus. PERRL. Neck: Supple. Lungs: Clear to auscultation. Cardiovascular: Regular rate and rhythm. Abdomen: Abdomen is distended. Incision is staple, dry and intact. KARLA drain on the right side of the abdomen with minimal drainage. Extremities: No clubbing, no cyanosis, no edema. Pedal pulses 2+ present bilaterally. Neurological: Alert and oriented x3. HEENT: Pale conjunctivae. No icterus. PERRL. Neurologic: Alert and oriented. LABORATORY: WBCs 8.02, RBC is 4.12, hemoglobin 12.0, hematocrit is 36.1, and platelet count is 358,000. Sodium is 133, potassium 3.7, chloride 98, carbon dioxide 24, anion gap 11, BUN 8, creatinine 0.7, glucose 91, calcium 9.0, total bilirubin 3.06, AST 144, ALT 248, and albumin is 3.4. IMPRESSION AND PLAN: CBD stones S/p ERCP S/p cholecystectomy Anemia Elevated liver enzymes Obesity PLAN: Mr. Sims is a 33-year-old male who is in the hospital status post cholecystectomy and ERCP. GI is following him for his obstructive jaundice and abdominal pain. His liver enzymes are trending downwards. The patient has discharge orders to go home. He has been advised to follow up with Dr. Weldon in 4 weeks to set up an appointment for the stent removal in 6 weeks. This plan was discussed with Dr. Schreiber. Please call us for any further questions or concerns. Dictated by AMY Calhoun for Radames Schreiber MD cc: MD Marcus Alfredo MD I have seen and examined the patient myself and I agree with the above plan of care. Please call us with any further questions or concerns. GLEND
== END 2019-06-18 11:52 | disposition home or self-care (01) | DRG 418 ==
LOC: P.ED 02:57 → SUATTDRO 02:58 → 4N 11:38
PROVIDERS: ADMIT Family Medicine; ATTEND Family Medicine
PROC: EN.ERCP (2019-06-16 11:10)